=== PATIENT | male | born 1970 | race African-American/Black ===

== ENCOUNTER 2019-09-11 15:43 | Emergency (ER) | payer SELFPAY ==
[~2019-09-11] VITALS: Ht 167 cm; Wt 99.0 kg
--- NOTE | 2019-09-11 15:56 | NUR ---
AMB TO ROOM REPORTS HAS MOVED HERE IN NOV FROM THE AREA. HAS BEEN OUT OF HIS INSULIN TIPS FOR HIS PEN. AND NOT TAKING HIS B/P MEDS THE WAY HE SHOULD BE.
[2019-09-11 16:15] LABS: BASOPHILS % (AUTO) 1 % (0-10); EOSINOPHILS # (AUTO) 0.2 10^3/uL (0.0-0.3); EOSINOPHILS % (AUTO) 4 % (0-10); HEMATOCRIT 41 % (40-54); HEMOGLOBIN 13.5 G/DL (13.3-17.7); LYMPHOCYTES # (AUTO) 1.7 X 10^3 (1.0-4.0); LYMPHOCYTES % (AUTO) 32 % (12-44); MEAN CORPUSCULAR HEMOGLOBIN 27 PG (25-34); MEAN CORPUSCULAR HGB CONC 33 G/DL (32-36); MEAN CORPUSCULAR VOLUME 82 FL (80-99); MEAN PLATELET VOLUME 10.7 FL (7.4-10.4); MONOCYTES # (AUTO) 0.4 X 10^3 (0.0-1.0); MONOCYTES % (AUTO) 7 % (0-12); NEUTROPHILS # (AUTO) 2.9 X 10^3 (1.8-7.8); NEUTROPHILS % (AUTO) 56 % (42-75); PLATELET COUNT 222 10^3/uL (130-400); RED CELL DISTRIBUTION WIDTH 14.9 % (10.0-14.5); WHITE BLOOD COUNT 5.2 10^3/uL (4.3-11.0)
[2019-09-11] MEDS ORDERED: inSUlin (REGULAR) HUMAN 1 UNIT/0.01 ML (CHARGE PER UNIT) SC ONE (16:15)
--- NOTE | 2019-09-11 16:15 | ED Integumentary General ---
General Chief Complaint: Glucose Problems Stated Complaint: HIGH BLOOD SUGARS,SWELLING Nursing Triage Note: STATES HE HAS NOT BEEN ABLE TO TAKE HIS INSLUIN X2 MONTHS. STATES HE IS HAVING TROUPLE WITH HIS VISION AND HAS A HEADACHE. Source: patient Exam Limitations: no limitations History of Present Illness Date Seen by Provider: Sep 11, 2019 Time Seen by Provider: 15:57 Initial Comments Patient ER by private conveyance with chief complaint that he feels blood sugar is high and he also has swelling and irritation of his upper eyelid on the left side. The swelling in his eyelid started today. He says usually when he gets stye on his eyelid it's caused by an [id number]-zjpahfx blood sugars. He does not have his glucometer and so has not checked his blood sugar for many months. He's been out of his tips for his insulin for the past 2-1/2 months. He recently moved to the area from [facility] in April 2019, 5 months ago. He has not established care with any primary provider's yet. He also has a history of heart attack in 2002 without stents or surgery. He is supposed to be on several blood pressure medicines including carvedilol only sporadically takes as he states he is "hard headed." He does smoke cigarettes and occasionally uses cannabis. Denies alcohol use. Today he's not having any fever cough, chest pain, nausea, dysuria, abdominal pain. In the past he has been admitted at [place] for elevated blood sugar about 1200 and diabetic coma. Allergies and Home Medications Allergies Coded Allergies: No Known Drug Allergies (Unverified , 09/11/19) Patient Home Medication List Home Medication List Reviewed: Yes Review of Systems Review of Systems Constitutional: No chills, No diaphoresis EENTM: No ear discharge, No ear pain Respiratory: No cough, No short of breath Cardiovascular: No chest pain, No edema, No Hx of Intervention, No palpitations; vascular heart diseas Gastrointestinal: see HPI; No abdominal pain, No constipation, No diarrhea, No nausea Genitourinary: No discharge, No dysuria, No frequency, No hematuria Musculoskeletal: No back pain, No joint pain Skin: No pruritus, No rash Psychiatric/Neurological: Denies Headache, Denies Numbness, Denies Paresthesia All Other Systems Reviewed Negative Unless Noted: Yes Past Yyroszx-Wurmeo-Knzxpq Hx Patient Social History Alcohol Use: Denies Use Recreational Drug Use: Yes Drug of Choice: POT Smoking Status: Current Everyday Smoker Type Used: Cigarettes Recent Foreign Travel: No Contact w/Someone Who Travel: No Recent Infectious Disease Expo: No Recent Hopitalizations: No Seasonal Allergies Seasonal Allergies: No Past Medical History Surgeries: No Respiratory: No Cardiac: Yes Heart Attack, Hypertension Neurological: No Genitourinary: No Gastrointestinal: No Musculoskeletal: No Endocrine: Yes Diabetes, Insulin dep HEENT: No Cancer: No Psychosocial: No Physical Exam Vital Signs Vital Signs - First Documented 09/11/19 15:45 Temp 36.9 Pulse 88 Resp 16 B/P (MAP) 177/121 (139) Pulse Ox 97 O2 Delivery Room Air Capillary Refill : Less Than 3 Seconds General Appearance: WD/WN, no apparent distress HEENT: PERRL/EOMI, normal ENT inspection, pharynx normal Neck: full range of motion, supple, normal inspection Cardiovascular: normal peripheral pulses, regular rate, rhythm, no edema, no murmur Respiratory: lungs clear, normal breath sounds, no respiratory distress, no a ccessory muscle use Gastrointestinal: normal bowel sounds, non tender, soft Neurologic/Psychiatric: alert, normal mood/affect, oriented x 3 Skin: normal color, warm/dry Skin Problem Location: face (left upper eyelid) Skin Problem Character: abscess (stye with pointing 2 mm superior to the eyelashes), drainage, tenderness, warm Procedures/Interventions I&D : Site: left eyelid Blade Size: 22-gauge 1-1/2 inch needle I & D Procedure: no betadine prep (alcohol) Progress Clean the site with alcohol and then D roofed the pointing head over the left eyelid using the 22-gauge 1-1/2 inch needle. Expressed a tiny amount of caseous white material. Patient tolerated procedure well. Progress/Results/Core Measures Results/Orders Lab Results Laboratory Tests Test 09/11/19 16:03 09/11/19 16:09 09/11/19 16:57 Range/Units Glucometer 325 H 350 H 70-110 MG/DL White Blood Count 5.2 4.3-11.0 10^3/uL Red Blood Count 4.97 4.35-5.85 10^6/uL Hemoglobin 13.5 13.3-17.7 G/DL Hematocrit 41 40-54 % Mean Corpuscular Volume 82 80-99 FL Mean Corpuscular Hemoglobin 27 25-34 PG Mean Corpuscular Hemoglobin Concent 33 32-36 G/DL Red Cell Distribution Width 14.9 H 10.0-14.5 % Platelet Count 222 130-400 10^3/uL Mean Platelet Volume 10.7 H 7.4-10.4 FL Neutrophils (%) (Auto) 56 42-75 % Lymphocytes (%) (Auto) 32 12-44 % Monocytes (%) (Auto) 7 0-12 % Eosinophils (%) (Auto) 4 0-10 % Basophils (%) (Auto) 1 0-10 % Neutrophils # (Auto) 2.9 1.8-7.8 X 10^3 Lymphocytes # (Auto) 1.7 1.0-4.0 X 10^3 Monocytes # (Auto) 0.4 0.0-1.0 X 10^3 Eosinophils # (Auto) 0.2 0.0-0.3 10^3/uL Basophils # (Auto) 0.0 0.0-0.1 10^3/uL Sodium Level 134 L 135-145 MMOL/L Potassium Level 4.2 3.6-5.0 MMOL/L Chloride Level 100 98-107 MMOL/L Carbon Dioxide Level 22 21-32 MMOL/L Anion Gap 12 5-14 MMOL/L Blood Urea Nitrogen 22 H 7-18 MG/DL Creatinine 1.87 H 0.60-1.30 MG/DL Estimat Glomerular Filtration Rate 47 BUN/Creatinine Ratio 12 Glucose Level 373 H 70-105 MG/DL Calcium Level 8.7 8.5-10.1 MG/DL Corrected Calcium 9.0 8.5-10.1 MG/DL Total Bilirubin 0.2 0.1-1.0 MG/DL Aspartate Amino Transf (AST/SGOT) 17 5-34 U/L Alanine Aminotransferase (ALT/SGPT) 19 0-55 U/L Alkaline Phosphatase 113 40-136 U/L Total Protein 7.1 6.4-8.2 GM/DL Albumin 3.6 3.2-4.5 GM/DL My Orders Orders - LINDA EVANGELISTA Insulin (Regular) Human (Humulin R (Per (09/11/19 16:15) Accucheck Stat ONCE (09/11/19 16:07) Cbc With Automated Diff (09/11/19 16:07) Comprehensive Metabolic Panel (09/11/19 16:07) Ed Iv/Invasive Line Start (09/11/19 16:07) Morphine Injection (Morphine Injection (09/11/19 16:51) Accucheck Stat ONCE (09/11/19 16:54) Medications Given in ED Current Medications Medications Dose Ordered Sig/Christian Route Start Time Stop Time Status Last Admin Dose Admin Insulin Human Regular 10 unit ONCE ONCE SC 09/11/19 16:15 09/11/19 16:16 DC 09/11/19 16:20 10 UNIT Vital Signs/I&O 09/11/19 15:45 Temp 36.9 Pulse 88 Resp 16 B/P (MAP) 177/121 (139) Pulse Ox 97 O2 Delivery Room Air Blood Pressure Mean: 139 Progress Progress Note #1: Time: 16:15 Progress Note Encourage him to use warm compresses. Plan to use a needle to wale the stye. Check an Accu-Chek 325. Plan to give him 10 units of regular insulin. He says if we can send him a prescription for tips he can use his insulin. We'll watch his blood pressure for now but we have encouraged him strongly to get back on his regimen of blood pressure medicines. I suspect that this is not an acute change and he is not having any symptoms consistent with high blood pressure. We have encouraged him to follow-up with primary care. If his labs do not show anything acute then we'll let him do this outpatient. Progress Note #2: Time: 17:43 Progress Note Blood pressure came down around 160/110. Plan is for him to take his blood pressure medicines when he gets home. His blood sugar did not change much overdone it give him some tips so he can start using his insulin. We'll get him a glucometer ordered as well. Departure Impression Primary Impression: Diabetes mellitus type 2 Qualified Codes: E11.69 - Type 2 diabetes mellitus with other specified complication; Z79.4 - USP (current) use of insulin Additional Impressions: Hyperglycemia Kareem Qualified Codes: H00.014 - Hordeolum externum left upper eyelid Hypertension associated with diabetes Disposition: 01 HOME, SELF-CARE Condition: Stable Departure-Patient Inst. Decision time for Depature: 17:45 Referrals: NO,LOCAL PHYSICIAN (PCP) Primary Care Physician Patient Instructions: LOCAL PHYSICIAN LIST, Stye (Hordeolum), Type 2 Diabetes Add. Discharge Instructions: When you get home please take your blood pressure medications as prescribed. Resume taking your insulin as prescribed. Establish care with a primary care provider. Warm, moist compresses every few hours to the left eyelid as necessary for swelling or pain. Keep the skin clean with radial or soap and water. Keflex 3 times a day for 5 days to prevent further infection. All discharge instructions reviewed with patient and/or family. Voiced understanding. Scripts [employer], Insulin Disposable (Relion Pen [employer]) 1 Each Dis.needle EACH QID for Hyperglycemia, #50 Prov: LINDA EVANGELISTA 09/11/19 Blood-Glucose Meter (Blood Glucose Meter) 1 Each Each EACH TIDAC PRN for HYPOGLYCEMIA, #1 0 Refills Prov: LINDA EVANGELISTA 09/11/19 Cephalexin (Cephalexin) 500 Mg Tablet 500 MG PO TID for 5 Days, #15 TAB 0 Refills Prov: LINDA EVANGELISTA 09/11/19 LINDA EVANGELISTA Sep 11, 2019 16:15
[2019-09-11] MEDS ORDERED: blood pressure (16:22)
[2019-09-11] MEDS ORDERED: insulin (16:23)
[2019-09-11 16:33] LABS: ALBUMIN 3.6 GM/DL (3.2-4.5); BILIRUBIN,TOTAL 0.2 MG/DL (0.1-1.0); CALCIUM 8.7 MG/DL (8.5-10.1); CREATININE SERUM 1.87 MG/DL (0.60-1.30); POTASSIUM 4.2 MMOL/L (3.6-5.0); TOTAL PROTEIN 7.1 GM/DL (6.4-8.2)
[2019-09-11] MEDS ORDERED: morphine INJ 10 MG/ML 1ML (SYR OR VIAL) IVP STA (16:51)
[2019-09-11] MEDS ORDERED: BLOO1EAC87 MC (17:56)
[2019-09-11] MEDS ORDERED: CEPH500T PO (17:56)
[2019-09-11] MEDS ORDERED: [UNRECOGNIZED DRUG - CODE] MC (17:56)
[2019-09-11 18:02] VITALS: BP 167/118
--- NOTE | 2019-09-11 18:02 | NUR ---
DR EVANGELISTA OF DISCHARGE B/P INSTRUCTION BY AND THIS NURSE TO TAKE B/P MEDS WHEN HE GET HOME. VOICED HE WOULD.
--- OUTSIDE RECORDS SUMMARY | 2019-09-11 23:19 | XMS REPORT ---
Author Author Marquez Best Nguyen Organization [facility] Address [address] [place], [place] [id number] Care Team Providers Care Senior Qc Technician Name Role Phone Wendy Zayas Unavailable PROBLEMS Type Condition ICD9-CM Code [id number] Code Onset Dates Condition S tatus SNOMED Code Problem CKD (chronic kidney disease), stage 3 (moderate) N 18.3 Active 080436425 Problem Drug abuse F19.10 Active 20156513 Problem LVH (left ventricular hypertrophy) I51.7 Active 19577374 Problem Type 2 diabetes mellitus with diabetic chronic kidney disease E11.22 Active 149097573142123 Problem Hyperlipidemia, unspecified E78.5 Ac tive 926904692 Problem Type 2 diabetes mellitus wit h hyperglycemia, without long-term current use of insulin E11.65 Active 06129650 Problem Dental examination V72.2 Active 3 6196984 Problem History of PCP abuse Z87.898 Active 057693923 Problem Hx of hyperlipidemia Z86.39 Active 281454244 Problem Chronic kidney disease, unspecified CKD stage N18. 9 Active 47238707 Problem Gout of multiple sites, unspecified cause, unspe cified chronicity M10.9 Active 04046832 Problem Current smoker F17.200 Active 70143 002 Problem Chronic kidney disease (CKD) stage G2/A3, mildly decreased glomerular filtration rate (GFR) between 60-89 mL/min/1.73 square meter and albuminuria creatinine ratio greater than 300 mg/g N18.2 Ac tive 745829760 Problem History of gout Z87.39 Active 1614 64502 Problem Essential (primary) hypertension I10 Active 63327230 Problem History of IN (myocardial infarction) I25.2 Active 293260484 Problem Homeless Z59.0 Active 23759457 Problem Positive fecal occult blood test R19.5 Active 90054699 ALLERGIES No Information ENCOUNTERS Encounter Location Date Diagnosis Adult Medicine [address] [place] [address] [id number] [id number] Aug, [facility] [address] [place] [address] [id number] 1 4 Aug, 2018 Homelessness Z59.[address] [place] [address] [id number] 14 Aug, 2018 Urinary frequency R35.0 ; Chronic kidney disease (CKD) stage G2/A3, mildly decreased glomerular filtration rate (GFR) between 60-89 mL/min/1.73 square meter and albuminuria creatinine ratio greater than 300 mg/g N18.2 ; Essential (primary) hypertension I10 ; Obesity (BMI 30-39.9) E66.9 ; [place] of foot L84 and History of IN (myocardial infarction) I25.[address] Adult Medicine [address] [place] [address] [id number] Jul, [facility] [address] [place] [address] [id number] 2 5 Jun, 2018 Homeless Z59.[address] [place] [address] [id number] Jun, [facility] [address] [place] [address] [id number] 3 1 May, 2018 Homeless Z59.[address] [place] [address] [id number] May, Essential (primary) hypertension I10 ; L VH (left ventricular hypertrophy) I51.7 ; Gout of multiple sites, unspecified cause, unspecified chronicity M10.9 ; Hyperlipidemia, unspecified E78.5 ; History of IN (myocardial infarction) I25.2 ; Homeless Z59.0 ; Chest pain, unspecified type R07.9 ; Encounter for immunization Z23 and [place] toe L84 [facility] [address] [place] [id number] May, Myopia of both eyes H52.13 [facility] [address] [place] [address] [id number] May, Homeless Z59.0 and Positive fecal occult blood test R19.[address] [address] [place] [address] [phone] May, Type 2 diabetes mellitus without complications E11.9 and Presbyopia H52.[address] [facility] [address] [place] [address] [id number] 1 7 May, 2018 Homeless Z59.0 Outreach [address] [facility] [id number] [id number] May, Essential (primary) hypertension I10 ; C urrent smoker F17.200 ; Tobacco abuse counseling Z71.6 ; History of PCP abuse Z87.898 ; Hx of hyperlipidemia Z86.39 ; History of IN (myocardial infarction) I25.2 ; Chronic kidney disease, unspecified CKD stage N18.9 ; Screening for colon cancer Z12.11 ; History of gout Z87.39 and Acute pain of right knee M25.561 [facility] [place] [address] [id number] [place] [id number] Feb, Type 2 diabetes mellitus with hyperglyce selene, without long-term current use of insulin E11.65 ; Essential hypertension I10 and Pure hypercholesterolemia E78.00 [facility] Dental [address] [place], [place] [id number] Feb, Dental caries extending into dentine 521.02 [facility] [address] [facility] [facility] [address] [place], [place] [id number] Jan, Dental examination V72.2 [facility] Dental [address] [place], [place] [id number] Dec, Chronic periodontitis 523.40 [facility] [address] [id number] [phone] Dec, [facility] [address] [id number] [id number] Sep, Benign essential hypertension 401.1 and Pure hypercholesterolemia 272.0 IMMUNIZATIONS No Known Immunizations SOCIAL HISTORY Never Assessed REASON FOR VISIT Homeless Case Management, [facility] Outreach Note PLAN OF CARE Activity Details Follow Up PRN Reason:[facility] VITAL SIGNS MEDICATIONS Unknown Medications RESULTS No Results PROCEDURES Procedure Date Ordered Result Body Site HOMELESS CASE MANAGEMENT 1/4 HR. September 08, 2018 INSTRUCTIONS MEDICATIONS ADMINISTERED No Known Medications MEDICAL (GENERAL) HISTORY Type Description Date Medical History High Blood Pressure Medical History High Cholesterol Medical History type II diabetes Hospitalization History Chest Pain 08/2014 Hospitalization History hyperglycemia, hypertension 2015 Hospitalization History hypertension 2017
--- OUTSIDE RECORDS SUMMARY | 2019-09-11 23:19 | XMS REPORT ---
Author Author Marquez Best Nguyen Organization [facility] Address [address] [place], [place] [id number] Care Team Providers Care Sex Offender Treatment Professional Name Role Phone Wendy Zayas Unavailable PROBLEMS Type Condition ICD9-CM Code ZHS49-DW Code Onset Dates Condition S tatus SNOMED Code Problem CKD (chronic kidney disease), stage 3 (moderate) N 18.3 Active 389854531 Problem Drug abuse F19.10 Active 70234590 Problem LVH (left ventricular hypertrophy) I51.7 Active 94625241 Problem Type 2 diabetes mellitus with diabetic chronic kidney disease E11.22 Active 272830466735664 Problem Hyperlipidemia, unspecified E78.5 Ac tive 206986266 Problem Type 2 diabetes mellitus wit h hyperglycemia, without long-term current use of insulin E11.65 Active 68445882 Problem Dental examination V72.2 Active 3 6791484 Problem History of PCP abuse Z87.898 Active 551734219 Problem Hx of hyperlipidemia Z86.39 Active 366115672 Problem Chronic kidney disease, unspecified CKD stage N18. 9 Active 90849731 Problem Gout of multiple sites, unspecified cause, unspe cified chronicity M10.9 Active 92658170 Problem Current smoker F17.200 Active 69156 002 Problem Chronic kidney disease (CKD) stage G2/A3, mildly decreased glomerular filtration rate (GFR) between 60-89 mL/min/1.73 square meter and albuminuria creatinine ratio greater than 300 mg/g N18.2 Ac tive 173360059 Problem History of gout Z87.39 Active 1614 59658 Problem Essential (primary) hypertension I10 Active 40101800 Problem History of ID (myocardial infarction) I25.2 Active 605808975 Problem Homeless Z59.0 Active 28642836 Problem Positive fecal occult blood test R19.5 Active 99500944 ALLERGIES No Information ENCOUNTERS Encounter Location Date Diagnosis [facility] [address] [place], [place] [phone] 2 October, Homelessness Z59.0 Adult Medicine [address] [place] [id number] [place] [id number] October, Type 2 diabetes mellitus with diabetic c hronic kidney disease E11.22 ; Chronic kidney disease (CKD) stage G2/A3, mildly decreased glomerular filtration rate (GFR) between 60-89 mL/min/1.73 square meter and albuminuria creatinine ratio greater than 300 mg/g N18.2 ; Essential (primary) hypertension I10 ; History of ID (myocardial infarction) I25.2 ; Obesity (BMI 30-39.9) E66.9 and Encounter for immunization Z23 Adult Medicine [address] [place] [address] [id number] Aug, [facility] [address] [place] [address] [id number] 1 4 Aug, 2018 Homelessness Z59.[address] [place] [id number] Aug, Urinary frequency R35.0 ; Chronic kidney disease (CKD) stage G2/A3, mildly decreased glomerular filtration rate (GFR) between 60-89 mL/min/1.73 square meter and albuminuria creatinine ratio greater than 300 mg/g N18.2 ; Essential (primary) hypertension I10 ; Obesity (BMI 30-39.9) E66.9 ; [place] of foot L84 and History of ID (myocardial infarction) I25.2 Adult Medicine [address] [place] [address] [id number] Jul, [facility] [address] [place] [address] [id number] 2 Jun, Homeless Z59.[address] [address] [place] [address] [id number] Jun, [facility] [address] [place] [address] [id number] 3 1 May, 2018 Homeless Z59.[address] [place] [address] [id number] May, Essential (primary) hypertension I10 ; L VH (left ventricular hypertrophy) I51.7 ; Gout of multiple sites, unspecified cause, unspecified chronicity M10.9 ; Hyperlipidemia, unspecified E78.5 ; History of ID (myocardial infarction) I25.2 ; Homeless Z59.0 ; Chest pain, unspecified type R07.9 ; Encounter for immunization Z23 and [place] of toe L84 [facility] [address] [place] [address] [id number] May, Myopia of both eyes H52.13 [facility] [address] [place] [id number] [place] [address] [id number] May, Homeless Z59.0 and Positive fecal occult blood test R19.[address] [place] [address] [id number] May, Type 2 diabetes mellitus without complications E11.9 and Presbyopia H52.4 [facility] [address] [place] [address] [id number] 1 May, Homeless Z59.[address] [place] [address] [id number] May, Essential (primary) hypertension I10 ; C urrent smoker F17.200 ; Tobacco abuse counseling Z71.6 ; History of PCP abuse Z87.898 ; Hx of hyperlipidemia Z86.39 ; History of ID (myocardial infarction) I25.2 ; Chronic kidney disease, unspecified CKD stage N18.9 ; Screening for colon cancer Z12.11 ; History of gout Z87.39 and Acute pain of right knee M25.561 [facility] [place] [address] [place] [id number] [id number] Feb, Type 2 diabetes mellitus with hyperglyce selene, without long-term current use of insulin E11.65 ; Essential hypertension I10 and Pure hypercholesterolemia E78.00 [facility] Dental [address] [address] Feb, Dental caries extending into dentine 521.02 [facility] Dental [address] [id number] Jan, Dental examination V72.2 [facility] Dental [address] [place] [address] Dec, Chronic periodontitis 523.[address] [id number] [id number] Dec, [address] [id number] [phone] Sep, Benign essential hypertension 401.1 and Pure hypercholesterolemia 272.0 IMMUNIZATIONS No Known Immunizations SOCIAL HISTORY Never Assessed REASON FOR VISIT [facility] Out[facility] PLAN OF CARE Activity Details Follow Up PRN Reason:[facility] VITAL SIGNS MEDICATIONS Unknown Medications RESULTS No Results PROCEDURES Procedure Date Ordered Result Body Site HOMELESS CASE MANAGEMENT 1/4 HR. November 16, 2018 INSTRUCTIONS MEDICATIONS ADMINISTERED No Known Medications MEDICAL (GENERAL) HISTORY Type Description Date Medical History High Blood Pressure Medical History High Cholesterol Medical History type II diabetes Hospitalization History Chest Pain 08/2014 Hospitalization History hyperglycemia, hypertension 2014 Hospitalization History hypertension 2017
--- OUTSIDE RECORDS SUMMARY | 2019-09-11 23:19 | XMS REPORT ---
Author Author [facility] Address [address] [place] [address] Care Team Providers Care Car Supplier Name Role Phone Ruy Sorensonter Unavailable PROBLEMS Type Condition ICD9-CM Code [id number] Code Onset Dates Condition S tatus SNOMED Code Problem CKD (chronic kidney disease), stage 3 (moderate) N 18.3 Active 734723848 Problem Drug abuse F19.10 Active 74497927 Problem LVH (left ventricular hypertrophy) I51.7 Active 87892312 Problem Type 2 diabetes mellitus with diabetic chronic kidney disease E11.22 Active 731590015938628 Problem Hyperlipidemia, unspecified E78.5 Ac tive 138373615 Problem Type 2 diabetes mellitus wit h hyperglycemia, without long-term current use of insulin E11.65 Active 87481342 Problem Dental examination V72.2 Active 3 2368013 Problem History of PCP abuse Z87.898 Active 606224931 Problem Hx of hyperlipidemia Z86.39 Active 578257731 Problem Chronic kidney disease, unspecified CKD stage N18. 9 Active 14734461 Problem Gout of multiple sites, unspecified cause, unspe cified chronicity M10.9 Active 58735708 Problem Current smoker F17.200 Active 97716 002 Problem Chronic kidney disease (CKD) stage G2/A3, mildly decreased glomerular filtration rate (GFR) between 60-89 mL/min/1.73 square meter and albuminuria creatinine ratio greater than 300 mg/g N18.2 Ac tive 572108243 Problem History of gout Z87.39 Active 1614 65914 Problem Essential (primary) hypertension I10 Active 40105443 Problem History of DE (myocardial infarction) I25.2 Active 350553033 Problem Homeless Z59.0 Active 52243665 Problem Positive fecal occult blood test R19.5 Active 76828204 ALLERGIES No Known Allergies ENCOUNTERS Encounter Location Date Diagnosis [facility] [address] [place], [place] [phone] 2 October, Homelessness Z59.0 [facility] [address] [place] [id number] [place] [address] [id number] October, Type 2 diabetes mellitus with diabetic c hronic kidney disease E11.22 ; Chronic kidney disease (CKD) stage G2/A3, mildly decreased glomerular filtration rate (GFR) between 60-89 mL/min/1.73 square meter and albuminuria creatinine ratio greater than 300 mg/g N18.2 ; Essential (primary) hypertension I10 ; History of DE (myocardial infarction) I25.2 ; Obesity (BMI 30-39.9) E66.9 and Encounter for immunization Z23 [facility] [address] [place] [address] [phone] Aug, [facility] [address] [place] [address] [id number] 1 4 Aug, 2018 Homelessness Z59.[address] [place] [address] [phone] Aug, Urinary frequency R35.0 ; Chronic kidney disease (CKD) stage G2/A3, mildly decreased glomerular filtration rate (GFR) between 60-89 mL/min/1.73 square meter and albuminuria creatinine ratio greater than 300 mg/g N18.2 ; Essential (primary) hypertension I10 ; Obesity (BMI 30-39.9) E66.9 ; [place] of foot L84 and History of DE (myocardial infarction) I25.2 [facility] [address] [place] [address] [id number] Jul, [facility] [address] [place] [address] [phone] 2 Jun, Homeless Z59.[address] [address] [place] [address] [id number] Jun, [facility] [address] [place] [address] [id number] 3 1 May, 2018 Homeless Z59.[address] [place] [address] [id number] May, Essential (primary) hypertension I10 ; L VH (left ventricular hypertrophy) I51.7 ; Gout of multiple sites, unspecified cause, unspecified chronicity M10.9 ; Hyperlipidemia, unspecified E78.5 ; History of DE (myocardial infarction) I25.2 ; Homeless Z59.0 ; Chest pain, unspecified type R07.9 ; Encounter for immunization Z23 and [place] of toe L84 [facility] [address] [place] [address] [phone] May, Myopia of both eyes H52.13 [facility] [address] [place] [id number] [phone] May, Homeless Z59.0 and Positive fecal occult blood test R19.[address] [address] [place] [address] [id number] May, Type 2 diabetes mellitus without complications E11.9 and Presbyopia H52.[address] [facility] [address] [place] [address] [phone] May, Homeless Z59.[address] [place] [address] [id number] May, Essential (primary) hypertension I10 ; C urrent smoker F17.200 ; Tobacco abuse counseling Z71.6 ; History of PCP abuse Z87.898 ; Hx of hyperlipidemia Z86.39 ; History of DE (myocardial infarction) I25.2 ; Chronic kidney disease, unspecified CKD stage N18.9 ; Screening for colon cancer Z12.11 ; History of gout Z87.39 and Acute pain of right knee M25.561 [facility] [place] [address] [id number] [phone] Feb, Type 2 diabetes mellitus with hyperglyce selene, without long-term current use of insulin E11.65 ; Essential hypertension I10 and Pure hypercholesterolemia E78.00 [facility] Dental [address] [place], [place] [address] Feb, Dental caries extending into dentine 521.02 [facility] Dental [address] [place] [phone] Jan, Dental examination V72.2 [facility] Dental [place] [address] Dec, Chronic periodontitis 523.[address] [id number] [phone] Dec, [address] [id number] [phone] Sep, Benign essential hypertension 401.1 and Pure hypercholesterolemia 272.0 IMMUNIZATIONS Vaccine Route Administration Date Status Hepatitis A (Havrix/Vaqta) (>19 y/o) IM Intramuscular November 16 Administered SOCIAL HISTORY Never Assessed REASON FOR VISIT med refill PLAN OF CARE Activity Details Follow Up 3 Months Reason:DM VITAL SIGNS Height 66 in 2018-11-16 Weight 242.0 lbs 2018-11-16 Temperature 97.4 degrees Fahrenheit 2018-11-16 BMI 39.06 kg/m2 2018-11-16 Oximetry 95 2018-11-16 Blood pressure systolic 160 mm Hg 2018-11-16 Blood pressure diastolic 96 mm Hg 2018-11-16 MEDICATIONS Medication Instructions Dosage Frequency Start Date End Date Duration S tatus Nitroglycerin 0.4 MG Sublingual As needed for ez st pain, 1 tab every 5 minutes not to excedd 3 doses or go to ER as directed Active Lantus SoloStar 100 UNIT/ML Subcutaneous qHS 50 units October, 30 days Active Easy Touch Pen [place] 31G X 8 MM sq QID as directed 6h 30 days Active Lipitor 40 MG Orally Once a day 1 tablet 24h 30 days Active HumaLOG KwikPen 100 UNIT/ML Subcutaneous TID 15 units 8h October, 30 days Active Aspir-81 81 MG Orally Once a day 1 tablet 24h 30 day s Active Carvedilol 12.5 MG Orally twice daily , am and pm as directed May, 30 days Active amLODIPine Besylate 10 MG Orally Once a day 1 tablet 24h May, 8 30 days Active Telmisartan 40 MG Orally Once a day 1 tablet 24h 30 days Active RESULTS No Results PROCEDURES Procedure Date Ordered Result Body Site HEPATIITS A ADULT November 16, 2018 INSTRUCTIONS MEDICATIONS ADMINISTERED No Known Medications MEDICAL (GENERAL) HISTORY Type Description Date Medical History High Blood Pressure Medical History High Cholesterol Medical History type II diabetes Hospitalization History Chest Pain 08/2014 Hospitalization History hyperglycemia, hypertension 2014 Hospitalization History hypertension 2016
--- OUTSIDE RECORDS SUMMARY | 2019-09-11 23:20 | XMS REPORT ---
Author Author [facility] Address [address] [place] [address] Care Team Providers Care Sales Agent Casualty Insurance Name Role Phone Marta Lovelace Unavailable PROBLEMS Type Condition ICD9-CM Code [id number] Code Onset Dates Condition S tatus SNOMED Code Problem Type 2 diabetes mellitus wit h hyperglycemia, without long-term current use of insulin E11.65 Active 52580252 Problem Current smoker F17.200 Active 55416 002 Problem History of gout Z87.39 Active 1614 49068 Problem Homeless Z59.0 Active 10865851 Problem Chronic kidney disease, unspecified CKD stage N18. 9 Active 17861592 Problem Hx of hyperlipidemia Z86.39 Active 735573395 Problem History of PCP abuse Z87.898 Active 706168208 Problem History of ND (myocardial infarction) I25.2 Active 115456213 Problem Essential (primary) hypertension I10 Active 11905722 Problem Type 2 diabetes mellitus with diabetic chronic kidney disease E11.22 Active 204706865088779 Problem CKD (chronic kidney disease), stage 3 (moderate) N 18.3 Active 798266217 Problem Drug abuse F19.10 Active 67205581 Problem LVH (left ventricular hypertrophy) I51.7 Active 16217645 Problem Hyperlipidemia, unspecified E78.5 Ac tive 407574784 Problem Dental examination V72.2 Active 3 [id number] ALLERGIES No Known Allergies ENCOUNTERS Encounter Location Date Diagnosis [facility] [address] [place], [place] [phone] May, Type 2 diabetes mellitus without complications E11.9 and Presbyopia H52.[address] [facility] [address] [place] [address] [id number] [phone] May, Homeless Z59.0 Outreach [address] [facility] [id number] [phone] May, Essential (primary) hypertension I10 ; C urrent smoker F17.200 ; Tobacco abuse counseling Z71.6 ; History of PCP abuse Z87.898 ; Hx of hyperlipidemia Z86.39 ; History of ND (myocardial infarction) I25.2 ; Chronic kidney disease, unspecified CKD stage N18.9 ; Screening for colon cancer Z12.11 ; History of gout Z87.39 and Acute pain of right knee M25.561 [facility] [place] [address] [facility] [id number] [id number] Feb, Type 2 diabetes mellitus with hyperglyce selene, without long-term current use of insulin E11.65 ; Essential hypertension I10 and Pure hypercholesterolemia E78.00 [facility] Dental [address] [facility] [address] [place], [place] [address] Feb, Dental caries extending into dentine 521.02 [facility] [address] [address] [place] [address] Jan, Dental examination V72.2 [place] [address] [place] [address] Dec, Chronic periodontitis 523.[address] [id number] [id number] Dec, [address] [id number] [phone] Sep, Benign essential hypertension 401.1 and Pure hypercholesterolemia 272.0 IMMUNIZATIONS No Known Immunizations SOCIAL HISTORY Never Assessed REASON FOR VISIT A1C, DM/HTN check, rt knee gout PLAN OF CARE Activity Details Follow Up tuesdays on MMU every week f or 4 weeks. Reason:BP and gout, referral F/U Pending Test Microalb/Creat Ratio, [facility] [place] 954332 Pending Test Lipid Panel With LDL/HDL Rat io Pending Test Comp Metabolic Panel (14) 32 1999 CMP Pending Test CBC With Differential Platel et 433133 Pending Test Occult Blood, Fecal, [place] FOBT Pending Test Uric Acid, Serum 132732 VITAL SIGNS Height 67 in 2018-06-13 Weight 223 lbs 2018-06-13 Temperature 97.9 degrees Fahrenheit 2018-06-13 BMI 34.92 kg/m2 2018-06-13 Oximetry 98 2018-06-13 Blood pressure systolic 188 mm Hg 2018-06-13 Blood pressure diastolic 119 mm Hg 2018-06-13 MEDICATIONS Medication Instructions Dosage Frequency Start Date End Date Duration S tatus predniSONE 20 MG Orally with food Once a day 2 tablet 24h 5 days Active Hydrochlorothiazide-25 mg 25 MG Orally Once a day 1 tablet 24h Not-Taking Aspir-81 81 MG Orally Once a day 1 tablet 24h May, 3 0 day(s) Active Lisinopril-hydroCHLOROthiazide 20-25 MG Orally Once a day 1 tablet 24h Feb, 30 days Active RESULTS Name Result Date Reference Range Hemoglobin A1c, Fingerstick (waived) Hemoglobin A1c 5.3 4.0 - 5.6 % PROCEDURES Procedure Date Ordered Result Body Site GLYCOHEMOGLOBIN HGAC Jun 13, 2018 INSTRUCTIONS MEDICATIONS ADMINISTERED No Known Medications MEDICAL (GENERAL) HISTORY Type Description Date Medical History High Blood Pressure Medical History High Cholesterol Medical History type II diabetes Hospitalization History Chest Pain 08/2014 Hospitalization History hyperglycemia, hypertension 2014 Hospitalization History hypertension 2016
--- OUTSIDE RECORDS SUMMARY | 2019-09-11 23:20 | XMS REPORT ---
Author Author [facility] Address [address] [place], [place] [id number] Care Team Providers Care Apartment Locator Name Role Phone Familia Jacoboduong Unavailable PROBLEMS Type Condition ICD9-CM Code [id number] Code Onset Dates Condition S tatus SNOMED Code Problem Type 2 diabetes mellitus wit h hyperglycemia, without long-term current use of insulin E11.65 Active 73195396 Problem Current smoker F17.200 Active 26329 002 Problem History of gout Z87.39 Active 1614 49492 Problem Homeless Z59.0 Active 85071428 Problem Chronic kidney disease, unspecified CKD stage N18. 9 Active 04578539 Problem Hx of hyperlipidemia Z86.39 Active 890774270 Problem History of PCP abuse Z87.898 Active 211129318 Problem History of PR (myocardial infarction) I25.2 Active 314552466 Problem Essential (primary) hypertension I10 Active 66890359 Problem Type 2 diabetes mellitus with diabetic chronic kidney disease E11.22 Active 661794292790680 Problem CKD (chronic kidney disease), stage 3 (moderate) N 18.3 Active 935413066 Problem Drug abuse F19.10 Active 58699169 Problem LVH (left ventricular hypertrophy) I51.7 Active 84132204 Problem Hyperlipidemia, unspecified E78.5 Ac tive 380977606 Problem Dental examination V72.2 Active 3 [id number] ALLERGIES No Known Allergies ENCOUNTERS Encounter Location Date Diagnosis [facility] [address] [place], [place] [phone] May, Type 2 diabetes mellitus without complications E11.9 and Presbyopia H52.4 [facility] [address] [place] [address] [phone] May, Homeless Z59.0 Outreach [address] [facility] [id number] [place] [phone] May, Essential (primary) hypertension I10 ; C urrent smoker F17.200 ; Tobacco abuse counseling Z71.6 ; History of PCP abuse Z87.898 ; Hx of hyperlipidemia Z86.39 ; History of PR (myocardial infarction) I25.2 ; Chronic kidney disease, unspecified CKD stage N18.9 ; Screening for colon cancer Z12.11 ; History of gout Z87.39 and Acute pain of right knee M25.561 [facility] [place] [address] [id number] [phone] Feb, Type 2 diabetes mellitus with hyperglyce selene, without long-term current use of insulin E11.65 ; Essential hypertension I10 and Pure hypercholesterolemia E78.00 [facility] [address] [place] [address] Feb, Dental caries extending into dentine 521.02 [facility] Dental [address] [place] [address] Jan, Dental examination V72.2 [facility] Dental [address] [place] [address] 6610 [address] Dec, Chronic periodontitis 523.40 [place] [address] [id number] [phone] Dec, [address] [id number] [id number] Sep, Benign essential hypertension 401.1 and Pure hypercholesterolemia 272.0 IMMUNIZATIONS No Known Immunizations SOCIAL HISTORY Never Assessed REASON FOR VISIT Diabetic retinal exam PLAN OF CARE Activity Details Follow Up 1 Year Reason:retinal exam VITAL SIGNS MEDICATIONS Medication Instructions Dosage Frequency Start Date End Date Duration S tatus predniSONE 20 MG Orally with food Once a day 2 tablet 24h 5 days Active Aspir-81 81 MG Orally Once a day 1 tablet 24h May, 3 0 day(s) Active Lisinopril-hydroCHLOROthiazide 20-25 MG Orally Once a day 1 tablet 24h Feb, 30 days Active Hydrochlorothiazide-25 mg 25 MG Orally Once a day 1 tablet 24h Not-Taking RESULTS No Results PROCEDURES Procedure Date Ordered Result Body Site DETERMINATION OF REFRACT Jun 13, 2018 INSTRUCTIONS MEDICATIONS ADMINISTERED No Known Medications MEDICAL (GENERAL) HISTORY Type Description Date Medical History High Blood Pressure Medical History High Cholesterol Medical History type II diabetes Hospitalization History Chest Pain 08/2014 Hospitalization History hyperglycemia, hypertension 2014 Hospitalization History hypertension 2016
--- OUTSIDE RECORDS SUMMARY | 2019-09-11 23:20 | XMS REPORT ---
Author [facility] Address [address] [place], [place] [id number] Care Team Providers Care Scroll Machine Operator Name Role Phone Richardson Dalton Unavailable PROBLEMS Type Condition ICD9-CM Code [id number] Code Onset Dates Condition S tatus SNOMED Code Problem Type 2 diabetes mellitus wit h hyperglycemia, without long-term current use of insulin E11.65 Active 64993938 Problem Current smoker F17.200 Active 72658 002 Problem History of gout Z87.39 Active 1614 90566 Problem Homeless Z59.0 Active 64181881 Problem Chronic kidney disease, unspecified CKD stage N18. 9 Active 67270631 Problem Hx of hyperlipidemia Z86.39 Active 499294257 Problem History of PCP abuse Z87.898 Active 227771480 Problem History of ND (myocardial infarction) I25.2 Active 174941548 Problem Essential (primary) hypertension I10 Active 53086883 Problem Type 2 diabetes mellitus with diabetic chronic kidney disease E11.22 Active 612239728540195 Problem CKD (chronic kidney disease), stage 3 (moderate) N 18.3 Active 431468043 Problem Drug abuse F19.10 Active 12726282 Problem LVH (left ventricular hypertrophy) I51.7 Active 47250663 Problem Hyperlipidemia, unspecified E78.5 Ac tive 181310739 Problem Dental examination V72.2 Active 3 [id number] ALLERGIES No Information ENCOUNTERS Encounter Location Date Diagnosis [facility] [address] [place], [place] [phone] May, Type 2 diabetes mellitus without complications E11.9 and Presbyopia H52.4 [facility] [address] [place] [id number] [phone] May, Homeless Z59.0 Outreach [address] [facility] [id number] [place] [phone] May, Essential (primary) hypertension I10 ; C urrent smoker F17.200 ; Tobacco abuse counseling Z71.6 ; History of PCP abuse Z87.898 ; Hx of hyperlipidemia Z86.39 ; History of ND (myocardial infarction) I25.2 ; Chronic kidney disease, unspecified CKD stage N18.9 ; Screening for colon cancer Z12.11 ; History of gout Z87.39 and Acute pain of right knee M25.561 [facility] [place] [address] [id number] [phone] Feb, Type 2 diabetes mellitus with hyperglyce selene, without long-term current use of insulin E11.65 ; Essential hypertension I10 and Pure hypercholesterolemia E78.00 [facility] Dental [address] [place] [address] Feb, Dental caries extending into dentine 521.02 [facility] Dental [facility] [address] [place], [place] [address] Jan, Dental examination V72.2 [facility] Dental [address] [place], [place] [address] Dec, Chronic periodontitis 523.40 [facility] [address] [id number] [place] [phone] Dec, [address] [id number] [place] [id number] Sep, Benign essential hypertension 401.1 and Pure hypercholesterolemia 272.0 IMMUNIZATIONS No Known Immunizations SOCIAL HISTORY Never Assessed REASON FOR VISIT Homeless Intake Screening PLAN OF CARE Activity Details Follow Up prn Reason:Homeless (Case Heather soliz) VITAL SIGNS MEDICATIONS No Known Medications RESULTS No Results PROCEDURES Procedure Date Ordered Result Body Site HOMELESS CASE MANAGEMENT 1/4 HR. Jun 13, 2018 [facility] ELIGIBILITY SCREEN Jun 13, 2018 INSTRUCTIONS MEDICATIONS ADMINISTERED No Known Medications MEDICAL (GENERAL) HISTORY Type Description Date Medical History High Blood Pressure Medical History High Cholesterol Medical History type II diabetes Hospitalization History Chest Pain 08/2014 Hospitalization History hyperglycemia, hypertension 2014 Hospitalization History hypertension 2017
--- OUTSIDE RECORDS SUMMARY | 2019-09-11 23:20 | XMS REPORT | Continuity of Care Document ---
Author Organization Unknown Address Unknown Phone Unavailable Allergies Active Description Code Type Severity Reaction Onset Reported/Identified Relationship to Patient Clinical Status Yes No Known Drug Allergies [id number] Drug Allergy Unknown N/A 09/11/2019 Medications There is no data. Problems There is no data. Procedures There is no data. Results Test Result Range Comp Metabolic Panel (14) [id number] CMP - 0 09/08/18 12:00 Glucose, Serum 765 mg/dL 65-99 BUN 19 mg/dL 6-24 Creatinine, Serum 1.45 mg/dL 0.76-1.27 eGFR If NonAfricn Am 56 mL/min/1.73 >59 eGFR If Africn Am 65 mL/min/1.73 >59 BUN/Creatinine Ratio 13 9-20 Sodium, Serum 126 mmol/L 134-144 Potassium, Serum 5.6 mmol/L 3.5-5.2 Chloride, Serum 90 mmol/L 96-106 Carbon Dioxide, Total 21 mmol/L 20-29 Calcium, Serum 8.9 mg/dL 8.7-10.2 Protein, Total, Serum 7.2 g/dL 6.0-8.5 Albumin, Serum 3.9 g/dL 3.5-5.5 Globulin, Total 3.3 g/dL 1.5-4.5 A/G Ratio 1.2 1.2-2.2 Bilirubin, Total <0.2 mg/dL 0.0-1.2 Alkaline Phosphatase, S 159 IU/L 39-117 AST (SGOT) 15 IU/L 0-40 ALT (SGPT) 22 IU/L 0-44 Urinalysis w/rflx Culture, Comp - 12:00 Specific [place] >=1.030 1.005-1.0 30 pH 6.0 5.0-7.5 Urine-Color Yellow Yellow Appearance Clear Clear WBC Esterase Negative Negative Protein Trace Negative/Trace Glucose 3+ Negative Ketones Negative Negative Occult Blood Negative Negative Bilirubin Negative Negative Urobilinogen,Semi-Qn 0.2 mg/dL 0.2-1.0 Nitrite, Urine Negative Negative Microscopic Examination NRG Microscopic Examination See below: NRG WBC 0-5 /hpf 0 - 5 RBC 0-2 /hpf 0 - 2 Epithelial Cells (non renal) 0-10 /hpf 0 - 10 Bacteria None seen None seen/Few Urinalysis Reflex NRG Hgb A1c with eAG Estimation - 09/08/18 1 2:00 Hemoglobin A1c >15.5 % 4.8-5.6 Estim. Avg Glu (eAG) >398 mg/dL NRG Capillary blood glucose measurement by g lucometer (mass/volume) - 09/11/19 16:03 Capillary blood glucose measurement by glucometer (mas s/volume) 325 mg/dL 70-110 Complete blood count (CBC) with automate d white blood cell (WBC) differential - 09/11/19 16:09 Blood leukocytes automated count (number/volume) 5.2 10*3/uL 4.3-11.0 Blood erythrocytes automated count (number/volume) 4.97 10*6/uL 4.35-5.85 Venous blood hemoglobin measurement (mass/volume) 13.5 g/dL 13.3-17.7 Blood hematocrit (volume fraction) 41 % 40-54 Automated erythrocyte mean corpuscular volume 82 [ foz_us] 80-99 Automated erythrocyte mean corpuscular h emoglobin (mass per erythrocyte) 27 pg 25-34 Automated erythrocyte mean corpuscular h emoglobin concentration measurement (mass/volume) 33 g/dL 32-36 Automated erythrocyte distribution width ratio 14. 9 % 10.0- 14.5 Automated blood platelet count (count/volume) 222 10*3/uL 130-400 Automated blood platelet mean volume measurement 10.7 [foz_us] 7.4-10.4 Automated blood neutrophils/100 leukocytes 56 % 42-75 Automated blood lymphocytes/100 leukocytes 32 % 12-44 Blood monocytes/100 leukocytes 7 % 0-12 Automated blood eosinophils/100 leukocytes 4 % 0-10 Automated blood basophils/100 leukocytes 1 % 0-10 Blood neutrophils automated count (number/volume) 2.9 10*3 1.8-7.8 Blood lymphocytes automated count (number/volume) 1.7 10*3 1.0-4.0 Blood monocytes automated count (number/volume) 0. 4 10*3 0.0-1.0 Automated eosinophil count 0.2 10*3/uL 0 .0-0.3 Automated blood basophil count (count/volume) 0.0 10*3/uL 0.0-0.1 Comprehensive metabolic panel - 09/11/19 16:09 Serum or plasma sodium measurement (moles/volume) 134 mmol/L 135-145 Serum or plasma potassium measurement (moles/volume) 4.2 mmol/L 3.6-5.0 Serum or plasma chloride measurement (moles/volume) 100 mmol/L 98-107 Carbon dioxide 22 mmol/L 21-32 Serum or plasma anion gap determination (moles/volume) 12 mmol/L 5-14 Serum or plasma urea nitrogen measurement (mass/volume ) 22 mg/dL 7-18 Serum or plasma creatinine measurement (mass/volume) 1.87 mg/dL 0.60-1.30 Serum or plasma urea nitrogen/creatinine mass ratio 12 NRG Serum or plasma creatinine measurement w ith calculation of estimated glomerular filtration rate 47 NRG Serum or plasma glucose measurement (mass/volume) 373 mg/dL 70-105 Serum or plasma calcium measurement (mass/volume) 8.7 mg/dL 8.5-10.1 Serum or plasma total bilirubin measurement (mass/volu me) 0.2 mg/dL 0.1-1.0 Serum or plasma alkaline phosphatase holley surement (enzymatic activity/volume) 113 U/L 40-136 Serum or plasma aspartate aminotransfera se measurement (enzymatic activity/volume) 17 U/L 5-34 Serum or plasma alanine aminotransferase measurement (enzymatic activity/volume) 19 U/L 0-55 Serum or plasma protein measurement (mass/volume) 7.1 g/dL 6.4-8.2 Serum or plasma albumin measurement (mass/volume) 3.6 g/dL 3.2-4.5 CALCIUM CORRECTED 9.0 mg/dL 8.5-10.1 Capillary blood glucose measurement by g lucometer (mass/volume) - 09/11/19 16:57 Capillary blood glucose measurement by glucometer (mas s/volume) 350 mg/dL 70-110 Encounters ACCT No. Visit Date/Time Discharge Status Pt. Type Provider Facility Loc./Unit Complaint [id number] 11/16/2018 10:00:00 11/16/2018 23:59: 59 [facility] Outpatient [facility] [id number] 09/08/2018 08:40:00 Document Registration [id number] 09/11/2019 15:46:00 020 18:02:00 DIS Emergency TONJA FLORES, LINDA [facility] ER HIGH BLOOD SUGARS,SWELL ING
== END 2019-09-11 18:02 | disposition home or self-care (01) ==
LOC: ER 15:46
DX: E11.65 Type 2 diabetes mellitus with hyperglycemia (principal); H00.014 Hordeolum externum left upper eyelid; I10 Essential (primary) hypertension; E11.9 Type 2 diabetes mellitus without complications; I25.2 Old myocardial infarction; F17.210 Nicotine dependence, cigarettes, uncomplicated; Z91.14 Patient's other noncompliance with medication regimen
CPT/HCPCS: 36415; 80053; 82962; 85025

== ENCOUNTER 2019-11-09 11:21 | Emergency (ER) | payer SELFPAY ==
[~2019-11-09] VITALS: Ht 167.7 cm; Wt 100.7 kg
[~2019-11-09 11:21] MED LIST: BLOO1EAC87 MC; CEPH500T PO; [UNRECOGNIZED DRUG - CODE] MC; blood pressure; insulin
[2019-11-09] MEDS ORDERED: KETOROLAC 60 MG/2 ML VIAL IM ONE (12:15)
--- NOTE | 2019-11-09 12:20 | ED Back Pain ---
General Chief Complaint: Lower Extremity Stated Complaint: LEG PAIN Nursing Triage Note: PT TO RM 6 BY WHEELCHAIR WITH COMPLAINT OF RIGHT CALF PAIN THAT RADIATES UP TO THIGH AND HIP. STATES BOTTOM OF FOOT IS NUMB. Nursing Sepsis Screen: No Definite Risk Source of Information: Patient Exam Limitations: No Limitations History of Present Illness Date Seen by Provider: November 09, 2019 Time Seen by Provider: 12:02 Initial Comments Patient presents to ER by her conveyance with chief complaint of about one week of leg pain that he says starts in his Radiates up to his right buttock. He says it is a burning electric sensation and he has numbness on the sole of his cardiology specialist willing walks on it. It's worse when he lays on that side. No history of trauma. No saddle anesthesia, loss of control of bowel or bladder, fevers chills dysuria or abdominal pain. No history of surgeries. No history of chronic back pain. He did just recently started new job at [employer] lifting some heavy doors in the past 2 weeks. He went to see his primary care doctor, luanne at [facility] and was prescribed diclofenac and Flexeril. He does not feel the diclofenac as helped. He is diabetic and his blood sugars have been elevated lately and a 200-300 range. Allergies and Home Medications Allergies Coded Allergies: No Known Drug Allergies (Unverified , 09/11/19) Home Medications Cephalexin 500 Mg Tablet, 500 MG PO TID Prescribed by: LINDA EVANGELISTA on 09/11/19 9670 Patient Home Medication List Home Medication List Reviewed: Yes Review of Systems Constitutional: No chills, No diaphoresis, No fever EENTM: No ear discharge, No ear pain Respiratory: No cough, No short of breath Cardiovascular: No chest pain, No edema Gastrointestinal: No abdominal pain, No nausea, No vomiting Genitourinary: No dysuria, No frequency Musculoskeletal: back pain; No joint pain Skin: No pruritus, No rash Psychiatric/Neurological: Denies Headache, Denies Numbness All Other Systems Reviewed Negative Unless Noted: Yes Past Qwnhiob-Warcre-Crrnza Hx Patient Social History Alcohol Use: Denies Use Recreational Drug Use: Yes Drug of Choice: POT Smoking Status: Current Everyday Smoker Type Used: Cigarettes Recent Foreign Travel: No Contact w/Someone Who Travel: No Recent Infectious Disease Expo: No Recent Hopitalizations: No Immunizations Up To Date Tetanus Booster (TDap): Unknown PED Vaccines UTD: Yes Seasonal Allergies Seasonal Allergies: No Past Medical History Surgeries: No Respiratory: No Cardiac: Yes Heart Attack, High Cholesterol, Hypertension Neurological: No Genitourinary: No Gastrointestinal: No Musculoskeletal: Yes Gout Endocrine: Yes Diabetes, Insulin dep Are Your Blood Sugars Over 250: Yes HEENT: No Cancer: No Psychosocial: No Physical Exam Vital Signs Vital Signs - First Documented 11/09/19 11:52 Temp 36.5 Pulse 103 Resp 20 B/P (MAP) 156/119 (131) Pulse Ox 96 O2 Delivery Room Air Capillary Refill : Less Than 3 Seconds Height, Weight, BMI Height: '" Weight: lbs. oz. kg; 35.00 BMI Method: General Appearance: WD/WN, Mild Distress HEENT: PERRL/EOMI, Pharynx Normal, Moist Mucous Membranes Neck: Full Range of Motion, Normal Inspection Cardiovascular: Regular Rate, Rhythm, Normal Peripheral Pulses Respiratory: No Accessory Muscle Use, No Respiratory Distress Gastrointestinal: Normal Bowel Sounds, Non Tender, Soft Back: Normal Inspection, No Vertebral Tenderness, Other (paravertebral tenderness over the lumbar right side soft tissues. Reproduces pain by direct palpation over the sciatic nerve) Extremity: Normal Capillary Refill, Normal Inspection, Normal Range of Motion, Non Tender, No Calf Tenderness, No Pedal Edema, Other (negative for Homans sign, nontender) Neurologic/Psychiatric: Alert, Oriented x3, Sensory Deficit (decreased sensation over the foot especially plantar surface) Skin: Normal Color, Warm/Dry Progress/Results/Core Measures Results/Orders Lab Results Laboratory Tests Test 11/09/19 12:50 Range/Units White Blood Count 5.1 4.3-11.0 10^3/uL Red Blood Count 5.51 4.35-5.85 10^6/uL Hemoglobin 15.0 13.3-17.7 G/DL Hematocrit 46 40-54 % Mean Corpuscular Volume 83 80-99 FL Mean Corpuscular Hemoglobin 27 25-34 PG Mean Corpuscular Hemoglobin Concent 33 32-36 G/DL Red Cell Distribution Width 14.2 10.0-14.5 % Platelet Count 249 130-400 10^3/uL Mean Platelet Volume 10.7 H 7.4-10.4 FL Neutrophils (%) (Auto) 66 42-75 % Lymphocytes (%) (Auto) 26 12-44 % Monocytes (%) (Auto) 6 0-12 % Eosinophils (%) (Auto) 2 0-10 % Basophils (%) (Auto) 0 0-10 % Neutrophils # (Auto) 3.4 1.8-7.8 X 10^3 Lymphocytes # (Auto) 1.3 1.0-4.0 X 10^3 Monocytes # (Auto) 0.3 0.0-1.0 X 10^3 Eosinophils # (Auto) 0.1 0.0-0.3 10^3/uL Basophils # (Auto) 0.0 0.0-0.1 10^3/uL Erythrocyte Sedimentation Rate 5 0-30 MM/HR C-Reactive Protein High Sensitivity 0.32 0.00-0.50 MG/DL My Orders Orders - LINDA EVANGELISTA Ketorolac Injection (Toradol Injection) (11/09/19 12:15) Ct Lumbar Spine Wo (11/09/19 12:13) Cbc With Automated Diff (11/09/19 12:13) Hs C Reactive Protein (11/09/19 12:13) Erythrocyte Sedimentation Rate (11/09/19 12:13) Medications Given in ED Current Medications Medications Dose Ordered Sig/Christian Route Start Time Stop Time Status Last Admin Dose Admin Ketorolac Tromethamine 60 mg ONCE ONCE IM 11/09/19 12:15 11/09/19 12:16 DC 11/09/19 12:35 60 MG Vital Signs/I&O 11/09/19 11:52 Temp 36.5 Pulse 103 Resp 20 B/P (MAP) 156/119 (131) Pulse Ox 96 O2 Delivery Room Air Blood Pressure Mean: 131 Progress Progress Note : Time: 12:19 Progress Note Suspect he has sciatica. Pain is reproducible to direct palpation. Because is going all the way down below the knee, it's a new pain and its associated with numbness in his foot it is indicated to get a CT without IV contrast of his lumbar spine to evaluate for significant pathology. We have discussed appropriate follow-up with his primary care office and he already has an appointment in 2 weeks. Because his blood sugars are under poor control this will slow healing and it would not be a good idea to start him on steroids. Bring to encourage him to continue taking the NSAIDs give him some Toradol and give him a prescription for lidocaine patches, encourage topical creams and a back brace. We have also encouraged heat which she says has helped. Diagnostic Imaging Diagonstic Imaging: CT (without IV contrast) Plain Films/CT/US/NM/MRI: other (lumbar spine) Comments NAME: MARIA ANTONAI THOMAS III [facility] REC#: [id number] PT STATUS: REG ER : 1970 PHYSICIAN: LINDA EVANGELISTA MD ADMIT DATE: 11/09/19/ER Draft Date of Exam:11/09/19 CT LUMBAR SPINE WO PROCEDURE: CT lumbar spine without contrast. TECHNIQUE: Multiple contiguous axial images were obtained through the lumbar spine without the use of intravenous contrast. Sagittal and coronal reformations were then performed. Auto Exposure Controls were utilized during the CT exam to meet ALARA standards for radiation dose reduction. INDICATION: Lower back pain. Right foot numbness. COMPARISON: None. FINDINGS: Cyber Incident Handler views and reformats demonstrate normal anatomic alignment of the lumbar spine. The visualized vertebral bodies are normal in height and contour. No acute compression fractures are seen. No pars defects are seen. There is no evidence of spondylolysis or spondylolisthesis. There are no large prevertebral or paraspinal masses. Mild multilevel degenerative changes are noted. This consists primarily of mild intervertebral disc height loss with anterior and posterior disc bulging as well as multilevel facet arthropathy. These changes appear greatest at the L4-L5 level where there does appear to be moderate narrowing of the spinal canal and [id number] narrowing of bilateral neural foramina. IMPRESSION: 1. No acute fracture or dislocation in the lumbar spine. 2. Multilevel degenerative changes, which appear greatest at L4-L5. Dictated on workstation # [id number] Dict: 11/09/19 1427 Trans: 11/09/19 1432 [id number] Interpreted by: BEVERLY SANTAMARIA MD Electronically signed by: Reviewed: Reviewed by Me Departure Impression Primary Impression: Lumbago with sciatica, right side Qualified Codes: M54.41 - Lumbago with sciatica, right side Disposition: 01 HOME, SELF-CARE Condition: Stable Departure-Patient Inst. Decision time for Depature: 14:39 Referrals: NO,LOCAL PHYSICIAN (PCP) Primary Care Physician Patient Instructions: Sciatica (DC), Sciatica Exercises Add. Discharge Instructions: Obtain a back brace and wear it on all the days that helps. Use heating pads. Topical creams such as icy hot or Biofreeze. Lidocaine patch to be changed every 12 hours as needed for pain. Tylenol 1000 mg every 8 hours as needed for pain. Continue using the diclofenac on a scheduled basis for your physician's orders. You may use the cyclobenzaprine as ordered. Follow-up with your primary care doctor if your symptoms are not improving in the next 1-2 weeks and discuss physical therapy. Continue to work on keeping your blood sugars under control as this will help with healing. Light duty for the next 2 weeks. All discharge instructions reviewed with patient and/or family. Voiced understanding. Scripts Lidocaine (Lidocaine) 1 Each Adh..patch 1 EACH TP Q12H PRN for PAIN-BREAKTHROUGH for 14 Days, #30 PATCH 0 Refills Prov: LINDA EVANGELISTA 11/09/19 Work/School Note: Work Release Form Date Seen in the Emergency Department: November 09, 2019 Return to Work: November 10, 2019 Restrictions: Need Release from Doctor Other Restrictions Listed Below: Do not push, pull or lifting greater than 40 pounds until 11/17/19 LINDA EVANGELISTA November 09, 2019 12:20
[2019-11-09 13:01] LABS: BASOPHILS % (AUTO) 0 % (0-10); EOSINOPHILS # (AUTO) 0.1 10^3/uL (0.0-0.3); EOSINOPHILS % (AUTO) 2 % (0-10); HEMATOCRIT 46 % (40-54); LYMPHOCYTES # (AUTO) 1.3 X 10^3 (1.0-4.0); LYMPHOCYTES % (AUTO) 26 % (12-44); MEAN CORPUSCULAR HEMOGLOBIN 27 PG (25-34); MEAN CORPUSCULAR HGB CONC 33 G/DL (32-36); MEAN CORPUSCULAR VOLUME 83 FL (80-99); MEAN PLATELET VOLUME 10.7 FL (7.4-10.4); MONOCYTES # (AUTO) 0.3 X 10^3 (0.0-1.0); MONOCYTES % (AUTO) 6 % (0-12); NEUTROPHILS # (AUTO) 3.4 X 10^3 (1.8-7.8); NEUTROPHILS % (AUTO) 66 % (42-75); PLATELET COUNT 249 10^3/uL (130-400); RED CELL DISTRIBUTION WIDTH 14.2 % (10.0-14.5); WHITE BLOOD COUNT 5.1 10^3/uL (4.3-11.0)
[2019-11-09 13:58] LABS: ERYTHROCYTE SEDIMENTATION RATE 5 MM/HR (0-30)
--- OUTSIDE RECORDS SUMMARY | 2019-11-09 14:21 | XMS REPORT | Continuity of Care Document ---
Author Organization Unknown Address Unknown Phone Unavailable Allergies Active Description Code Type Severity Reaction Onset Reported/Identified Relationship to Patient Clinical Status Yes No Known Drug Allergies [id number] Drug Allergy Unknown N/A 09/11/2019 Medications There is no data. Problems Date Dx Coded Attending Type Code Diagnosis Diagnosed By 09/14/2019 TONJA FLORES, LINDA Fine Ot E11. 65 TYPE 2 DIABETES MELLITUS WITH HYPERGLYCE 09/14/2019 TONJA FLORES, LINDA Fine Ot E11. 9 TYPE 2 DIABETES MELLITUS WITHOUT COMPLIC 09/14/2019 TONJA FLORES, LINDA Fine Ot F17.210 NICOTINE DEPENDENCE, CIGARETTES, UNCOMPL 09/14/2019 LINDA EVANGELISTA MD Ot H00.014 HORDEOLUM EXTERNUM LEFT UPPER EYELID 09/14/2019 LINDA EVANGELISTA MD Ot I10 ESSENTIAL (PRIMARY) HYPERTENSION 09/14/2019 LINDA EVANGELISTA MD Ot I25. 2 OLD MYOCARDIAL INFARCTION 09/14/2019 LINDA EVANGELISTA MD Ot R73. 9 HYPERGLYCEMIA, UNSPECIFIED 09/14/2019 LINDA EVANGELISTA MD Ot Z91. 14 PATIENT'S OTHER NONCOMPLIANCE WITH MEDIC Procedures There is no data. Results Test Result Range Comp Metabolic Panel (14) [id number] CMP - 0 09/08/18 12:00 Glucose, Serum [...] Urinalysis w/rflx Culture, Comp - 12:00 Specific [place] >=1.030 1.005-1.0 30 pH 6.0 5.0-7.5 Urine-Color [...] by glucometer (mas s/volume) 350 mg/dL 70-110 Complete blood count (CBC) with automate d white blood cell (WBC) differential - 11/09/19 12:50 Blood leukocytes automated count (number/volume) 5.1 10*3/uL 4.3-11.0 Blood erythrocytes automated count (number/volume) 5.51 10*6/uL 4.35-5.85 Venous blood hemoglobin measurement (mass/volume) 15.0 g/dL 13.3-17.7 Blood hematocrit (volume fraction) 46 % 40-54 Automated erythrocyte mean corpuscular volume 83 [ foz_us] 80-99 Automated erythrocyte mean corpuscular h emoglobin (mass per erythrocyte) 27 pg 25-34 Automated erythrocyte mean corpuscular h emoglobin concentration measurement (mass/volume) 33 g/dL 32-36 Automated erythrocyte distribution width ratio 14. 2 % 10.0- 14.5 Automated blood platelet count (count/volume) 249 10*3/uL 130-400 Automated blood platelet mean volume measurement 10.7 [foz_us] 7.4-10.4 Automated blood neutrophils/100 leukocytes 66 % 42-75 Automated blood lymphocytes/100 leukocytes 26 % 12-44 Blood monocytes/100 leukocytes 6 % 0-12 Automated blood eosinophils/100 leukocytes 2 % 0-10 Automated blood basophils/100 leukocytes 0 % 0-10 Blood neutrophils automated count (number/volume) 3.4 10*3 1.8-7.8 Blood lymphocytes automated count (number/volume) 1.3 10*3 1.0-4.0 Blood monocytes automated count (number/volume) 0. 3 10*3 0.0-1.0 Automated eosinophil count 0.1 10*3/uL 0 .0-0.3 Automated blood basophil count (count/volume) 0.0 10*3/uL 0.0-0.1 Serum or plasma C reactive protein measu rement (mass/volume) - 11/09/19 12:50 Serum or plasma C reactive protein measurement (mass/v olume) 0.32 mg/dL 0.00-0.50 Erythrocyte sedimentation rate by j luis gren method - 11/09/19 12:50 Erythrocyte sedimentation rate by westergren method 5 mm 0- 30 Encounters ACCT No. Visit Date/Time Discharge Status Pt. Type Provider Facility Loc./Unit Complaint [id number] 11/06/2019 11:40:00 ACT Outpatient [facility] [id number] 11/16/2018 10:00:00 11/16/2018 23:59: 59 CLS Outpatient [facility] [id number] 09/08/2018 08:40:00 Document Registration [id number] 09/11/2019 15:46:00 020 18:02:00 DIS Outpatient TONJA FLORES, LINDA Fine [facility] ER HIGH BLOOD SUGARS,SWELL ING [id number] 11/09/2019 13:02:00 Document Registration
--- NOTE | 2019-11-09 14:33 | Diagnostic Imaging Report ---
PROCEDURE: CT lumbar spine without contrast. TECHNIQUE: Multiple contiguous axial images were obtained through the lumbar spine without the use of intravenous contrast. Sagittal and coronal reformations were then performed. Auto Exposure Controls were utilized during the CT exam to meet ALARA standards for radiation dose reduction. INDICATION: Lower back pain. Right foot numbness. COMPARISON: None. FINDINGS: Transfer Controller views and reformats demonstrate normal anatomic alignment of the lumbar spine. The visualized vertebral bodies are normal in height and contour. No acute compression fractures are seen. No pars defects are seen. There is no evidence of spondylolysis or spondylolisthesis. There are no large prevertebral or paraspinal masses. Mild multilevel degenerative changes are noted. This consists primarily of mild intervertebral disc height loss with anterior and posterior disc bulging as well as multilevel facet arthropathy. These changes appear greatest at the L4-L5 level where there does appear to be moderate narrowing of the spinal canal and [id number] narrowing of bilateral neural foramina. IMPRESSION: 1. No acute fracture or dislocation in the lumbar spine. 2. Multilevel degenerative changes, which appear greatest at L4-L5. Dictated by: Dictated on workstation # [id number]
[2019-11-09] MEDS ORDERED: LIDO1ADH78 TP ×2 (14:44→14:53)
[2019-11-09] MEDS ORDERED: ACETAMINOPHEN 500 MG TAB (TYLENOL) ONE (14:48)
[2019-11-09 14:59] VITALS: BP 150/102
[2019-11-09] MEDS ORDERED: ACETAMINOPHEN 500 MG TAB (TYLENOL) PO ONE (15:00)
== END 2019-11-09 15:02 | disposition home or self-care (01) ==
LOC: EDUNIT# 11:21 → ER 11:22
DX: M54.41 Lumbago with sciatica, right side (principal); E11.9 Type 2 diabetes mellitus without complications; I25.2 Old myocardial infarction; F17.210 Nicotine dependence, cigarettes, uncomplicated
CPT/HCPCS: 36415; 72131; 85025; 85652; 86141; 96372